=== PATIENT | male | born 1960 | race Caucasian/White ===

== ENCOUNTER 2016-10-19 14:12 | Inpatient (IN) | payer OTHER ==
[~2016-10-19] VITALS: Ht 182.9 cm; Wt 89.3 kg
--- NOTE | ~2016-10-19 | FD ---
ADMIT: 10/19/2016 RM/LOC: 512 [facility] MR#: [id number] [address] [address] [place] [address] Final Diagnosis SEX: M AGE: 56 : 1960 ADMISSION DATE: 10/19/2016 DISCHARGE DATE: 10/20/2016 DISCHARGE DIAGNOSES: 1. Acute episodic encephalopathy of unknown etiology. 2. Known colon cancer with liver metastasis. 3. Generalized anxiety disorder. 4. Chronic pain. 5. Diabetes mellitus. CONSULTS: Oncology, Bryon Gage MD PROCEDURES: None. REASON FOR ADMISSION: The patient admitted from the Emergency Department after presenting again with an episode of encephalopathy. Please see H and P for full details. HOSPITAL COURSE: The patient was admitted as a [facility] patient for further evaluation and treatment of episodes of confusion. He was given IV fluids and his home medicines resumed. Spontaneously in the morning, he had resolved to his baseline. He routinely follows with Dr. Bryon Gage for Oncology regarding his colon cancer. Dr. Gage knows him well and when he evaluated the patient in the morning, he reported that he was at his baseline. We recommended a Neurology consult; however, they are available. Therefore, he was set up with outpatient followup. Given resolution of his symptoms, family felt stable for monitoring at home with outpatient neurologic followup. DISCHARGE MEDICATIONS: 1. Desyrel 50 mg at bedtime. 2. Lyrica 100 mg b.i.d. 3. Melatonin 4.5 mg at bedtime. 4. Pepcid 20 mg daily. 5. Multivitamin daily. 6. Promethazine 25 mg t.i.d. as needed for cough. 7. Xanax 0.25 mg 1/2 to 1 tab p.o. q.6 hours as needed for anxiety. 8. Docusate 100 mg b.i.d. and 200 mg at bedtime. 9. Latuda 20 mg daily. 10.Lamictal 100 mg daily. 11.Vitamin D 5000 units daily. 12.Trazodone 50 mg at bedtime. 13.Morphine sulfate extended release 15 mg b.i.d. and morphine sulfate ADMIT: 10/19/2016 RM/LOC: 512 [facility] MR#: [id number] [id number] [place], [place] [address] [place] [address] Final Diagnosis SEX: M AGE: 56 : 1960 immediate release 15 mg q.6 hours p.r.n. pain. 14.Hydrochlorothiazide 12.5 mg daily. 15.Dexamethasone 8 mg with chemotherapy. 16.Levemir per home dose. 17.Pristiq 100 mg daily. DISCHARGE INSTRUCTIONS: The patient was discharged home in stable condition. He will continue with a diabetic diet and activity as tolerated. He will follow up with his primary care provider in [place] in 1 to 2 weeks. He will also continue with routine followup with his oncologist, Dr. Gage. We also scheduled him a Neurology appointment with the next available with Dr. Olson. Dina Farooq MD/ iwona JOB #: [id number] CC: Bryon Gage MD, Attending Physician Bryon Gage MD, Family Physician
--- NOTE | ~2016-10-19 | WND ---
ADMIT: 10/19/2016 RM/LOC: 512 [facility] MR#: [id number] [address] [address] [place] [address] Wound Care Clinic SEX: M AGE: 56 : 1960 DATE OF VISIT: 10/20/2016 REASON FOR VISIT: Stage III pressure ulcer to his coccyx. TIME OF VISIT: 15 minutes. HISTORY OF PRESENT ILLNESS: Casper is a 56-year-old male, who was admitted to the hospital for increasing confusion. He has a past medical history significant for colon cancer, diabetes, and anxiety who was becoming increasingly confused. He has an ulceration to his coccyx that his states that he received during combining last fall. He has been seen by [facility] and they have him using a compounded cream which has Vaseline, zinc, and an antifungal cream in it. His states she has been putting this on 3 times daily. They also gave him an air cushion for his chair to relieve some of the pressure, however, his states that he has fallen off it several times. PAST MEDICAL HISTORY: 1. Colon cancer. 2. Type 2 diabetes mellitus on insulin. 3. Generalized anxiety. 4. Insomnia. 5. Gastroesophageal reflux disease. 6. Chronic constipation secondary to narcotics. 7. Chronic pain due to malignancy. 8. Hypertension. MEDICATIONS: 1. Melatonin. 2. Zantac. 3. Multivitamin. 4. Promethazine. 5. Xanax. 6. Docusate. 7. Latuda. 8. Lamictal. 9. Vitamin D. 10.Trazodone. 11.Morphine ER. 12.Hydrochlorothiazide. 13.Prochlorperazine. 14.Lyrica. 15.Dexamethasone with chemo. 16.Pristiq. 17.Levemir. ALLERGIES: Penicillins and sulfa. SOCIAL HISTORY: The patient resides in his own home with his . He denies ADMIT: 10/19/2016 RM/LOC: 512 [facility] MR#: [id number] [address] [address] [place] [address] Wound Care Clinic SEX: M AGE: 56 : 1960 tobacco or alcohol use. FAMILY HISTORY: Unremarkable. REVIEW OF SYSTEMS: Casper denies fever or chills. He denies chest pain or shortness of breath. He does report that he has pain to his coccyx area and has to reposition to get rid of the pain. PHYSICAL EXAMINATION: VITAL SIGNS: Temperature is 98.7 degrees Fahrenheit, pulse 73, respirations 16, blood pressure 153/75, and pulse ox 96% on room air. GENERAL: Reveals an alert and oriented 56-year-old male, in no acute distress. EXTREMITIES: Assessment of his coccyx area reveals a full-thickness ulcer on the right side of his gluteal cleft that measures 3 cm in length x 2 cm in width with a dry pink wound bed. There is no induration noted. No periwound erythema is noted. No drainage is noted. ASSESSMENT: Stage III pressure ulcer to the right side of his gluteal fold. PLAN: We will have the staff continue with the Sensi-Care as they have already started applying 4 times daily. In addition, he needs to have an air cushion in his chair while in the hospital. He and his were amenable to plan of care. His reports that while he has been in the hospital she has applied the cream from [facility] in between the doses of Sensi-Care. I did let them know that it was very important to keep the area moist as moist wounds heal faster, but more importantly than that is to offload the area. He was instructed that he should be lying in bed for 1 hour after each meal on his right or left side. The patient is amenable to plan of care. I would like to thank Dr. Dina Farooq for allowing us to participate in Mr. Street's care. Kelley Patterson APRN/ iwona JOB #: [id number] CC: Bryon Gage MD, Attending Physician Bryon Gage MD, Family Physician
[2016-10-21] MEDS ORDERED: MELATONIN3 MG PO (16:22)
[2016-10-21] MEDS ORDERED: PHENERGAN DPS25 MG PO (16:23)
[2016-10-21] MEDS ORDERED: XANAX DPS0.25 MG PO (16:23)
[2016-10-21] MEDS ORDERED: ZANTAC DPS150 MG PO (16:23)
[2016-10-21] MEDS ORDERED: THERAPEUTIC MUL1 TAB PO (16:23)
[2016-10-21] MEDS ORDERED: COLACE100 MG PO (16:24)
[2016-10-21] MEDS ORDERED: LAMICTAL DPS100 MG PO (16:24)
[2016-10-21] MEDS ORDERED: COLACE-DPS100 MG PO (16:24)
[2016-10-21] MEDS ORDERED: LATUDA20 MG PO (16:24)
[2016-10-21] MEDS ORDERED: VITAMIN D35000 UNI1 PO (16:25)
[2016-10-21] MEDS ORDERED: DESYREL-DPS50 MG PO (16:25)
[2016-10-21] MEDS ORDERED: MORPHINE SULFAT15 M1 PO ×2 (16:25)
[2016-10-21] MEDS ORDERED: HCTZ12.5 MG PO (16:26)
[2016-10-21] MEDS ORDERED: COMPAZINE10 MG PO (16:26)
[2016-10-21] MEDS ORDERED: LYRICA50 MG PO (16:26)
[2016-10-21] MEDS ORDERED: LEVEMIR FL100 UNIT/1 SQ (16:27)
[2016-10-21] MEDS ORDERED: DECADRON-DPS4 MG PO (16:27)
[2016-10-21] MEDS ORDERED: PRISTIQ50 MG PO (16:27)
--- NOTE | 2016-10-24 08:51 | HP ---
ADMIT: 10/19/2016 RM/LOC: 512 [facility] MR#: [id number] [address] [address] [place] [address] History and Physical SEX: M AGE: 56 : 1960 DATE OF SERVICE: CHIEF COMPLAINT: Confusion. HISTORY OF PRESENT ILLNESS: Mr. Street is a 56-year-old, male with past medical history significant for colon cancer, diabetes, and anxiety, who has had 2-3 month history of intermittent confusion. He has been evaluated numerous times for these episodes including several hospitalizations at [facility]. He apparently has had neurologic evaluation including MRIs and EEGs. No etiology was determined. He seems to improve with IV fluids and monitoring through the hospitalization. He was most recently admitted within the last week in [facility], was discharged just 2 days ago. At that time, they were told that this was likely due to his cancer and chemotherapy. He was discharged in stable condition but several hours later, he again became more confused. His found him sitting naked on the couch and did not know where he was or what he was doing. Therefore, she brought him to the Emergency Department for further evaluation. A head CT was performed and showed no change, just a chronic cyst. Blood work was also unremarkable. It was thought best to admit for further evaluation and treatment. Other significant past medical history includes history of an "amnesic episode." This was in 2011 and he was seen by Neurology for this episode. This was prior to his cancer diagnosis. At that time, it was felt this was secondary to severe anxiety. He then established with Psychiatry. Since that time, he has been on Latuda, Lamictal, trazodone, Xanax, and Pristiq. He says his normal panic attacks include shortness of breath, heart racing, and hand sweating. These episodes do not seem to be related to his panic attacks. He denies any headaches or migraines. He has had no recent change in his medications. His manages all his medications, so he is very sure he has not missed doses or taken excessive doses. This morning, the patient actually reports he is feeling well. His says he is at his baseline. PAST MEDICAL HISTORY: 1. Colon cancer. 2. Type 2 diabetes mellitus, on insulin. 3. Generalized anxiety. 4. Insomnia. 5. Gastroesophageal reflux disease. 6. Chronic constipation secondary to narcotics. 7. Chronic pain due to malignancy. 8. Hypertension. MEDICATIONS: 1. Melatonin 5 mg at bedtime. 2. Zantac 150 mg daily. 3. Multivitamin daily. 4. Promethazine 25 mg three times daily for cough. ADMIT: 10/19/2016 RM/LOC: 512 [facility] MR#: [id number] [address] [address] [facility] [place] [address] History and Physical SEX: M AGE: 56 : 1960 5. Xanax 0.125 mg daily in the a.m. and 0.25 mg at supper and bedtime. 6. Docusate 100 mg twice daily and an additional 200 mg at bedtime. 7. Latuda 20 mg in the evening. 8. Lamictal 100 mg at bedtime. 9. Vitamin D daily. 10.Trazodone 50 mg at bedtime. 11.Morphine ER 15 mg twice daily and morphine 50 mg IR every 6 hours as needed. 12.Hydrochlorothiazide 12.5 mg daily. 13.Prochlorperazine 10 mg t.i.d. 14.Lyrica 100 mg twice daily. 15.Dexamethasone with chemo. 16.Pristiq 100 mg daily. 17.Levemir, unknown dose. ALLERGIES: TO PENICILLIN AND SULFA. SOCIAL HISTORY: The patient lives independently at home with his . No known alcohol abuse. Nonsmoker and denies illicit drug use. FAMILY HISTORY: Unremarkable. REVIEW OF SYSTEMS: As per HPI, reviewed and negative. PHYSICAL EXAMINATION: VITAL SIGNS: Temperature 97.8, pulse 73, respiratory rate 18, blood pressure 155/86, oxygen saturation 96% on room air. GENERAL: The patient is awake, alert, no acute distress. HEENT: Within normal limits, although he does have a small abrasion that has a bandage over it to the right temporal scalp. HEART: Regular rate and rhythm. No murmurs. LUNGS: Clear to auscultation but diminished throughout. No crackles or wheezes. No accessory muscle use. ABDOMEN: Soft, nontender, and nondistended. Normal bowel sounds. EXTREMITIES: Warm and dry. No edema. NEUROLOGIC: Cranial nerves II through XII grossly intact. No focal neurologic deficit. PSYCH: The patient' mood and affect are appropriate. SKIN: The patient has a large pressure ulcer to the sacrum. LABORATORY DATA: See electronic record for full details. IMAGING: Head CT and chest x-ray were reviewed. ASSESSMENT AND PLAN: 1. Acute episodic encephalopathy. We will consult Neurology to get a second opinion on possible etiologies. This is currently resolved at this time however. ADMIT: 10/19/2016 RM/LOC: 512 [facility] MR#: [id number] [address] [place] [address] [place] [address] History and Physical SEX: M AGE: 56 : 1960 2. Colon cancer with liver metastasis. His oncologist has been consulted and does not feel this mental status changes related to his malignancy or his chemotherapy. 3. Generalized anxiety. Appears well controlled but would consider this as a contributing factor as well. He should continue following with his psychiatrist. 4. Chronic pain. This is well controlled. 5. Diabetes mellitus. We will clarify his home insulin regimen. This is uncontrolled with an A1c of 8.0. DISPOSITION: We will plan to discharge patient home following Neuro evaluation. It will likely be this afternoon versus tomorrow. Dina Farooq MD/ iwona JOB #: [id number] CC: Bryon Gage, Attending Physician Bryon Gage, Family Physician
--- NOTE | 2016-11-13 01:08 | ER ---
ADMIT: 10/19/2016 RM/LOC: 512 [facility] MR#: [id number] [address] [address] [place] [address] Emergency Room Report SEX: M AGE: 56 : 1960 DATE: 10/19/2016 This patient was admitted. CLINICAL IMPRESSION: 1. Colon cancer stage IV with mets to the liver. 2. Acute confusion. 3. Hyperglycemia with diabetes. The patient was admitted mostly for the confusion to have further investigation. DISPOSITION: Stable at admit. ASIA Chapman / Tyler Crowell MD / modl JOB #: [id number] CC: Bryon Gage MD, Attending Physician Bryon Gage MD, Family Physician
[2016-11-17] MEDS ORDERED: GLUCOPHAGE500 MG PO (06:20)
[2016-11-17] MEDS ORDERED: JANUVIA50 MG PO (06:21)
[2016-11-17] MEDS ORDERED: KLOR-CON M2020 ME1 PO (06:21)
[2016-11-17] MEDS ORDERED: MAG-OX400 MG PO (06:23)
[2016-11-17] MEDS ORDERED: PEPCID DPS20 MG PO (06:24)
[2016-11-17] MEDS ORDERED: XANAX DPS0.25 MG PO (06:26)
[2016-11-17] MEDS ORDERED: MSIR DPS15 MG PO (06:27)
[2016-11-17] MEDS ORDERED: MAALOX DPS30 ML PO (06:27)
[2016-11-17] MEDS ORDERED: SURFAK DPS240 MG PO (06:28)
[2016-11-17] MEDS ORDERED: TYLENOL DPS325 MG PO (06:29)
[2016-11-17] MEDS ORDERED: DEXAMETHASONE4 MG PO (06:31)
== END 2016-10-20 16:48 | disposition home or self-care (01) | DRG 70 ==
LOC: ER 14:12 → 5MS 18:26
PROVIDERS: ADMIT Family Medicine
DX: G93.49 Other encephalopathy (principal); L89.313 Pressure ulcer of right buttock, stage 3; C78.7 Secondary malignant neoplasm of liver and intrahepatic bile duct; C18.9 Malignant neoplasm of colon, unspecified; E11.65 Type 2 diabetes mellitus with hyperglycemia; F41.0 Panic disorder [episodic paroxysmal anxiety]; K59.03 Drug induced constipation; I10 Essential (primary) hypertension; F41.1 Generalized anxiety disorder; G47.00 Insomnia, unspecified; T40.605A Adverse effect of unspecified narcotics, initial encounter; G89.3 Neoplasm related pain (acute) (chronic); Z79.4 Long term (current) use of insulin

== ENCOUNTER 2016-11-09 15:20 | Observation (INO) | payer OTHER, MEDICARE ==
[~2016-11-09] VITALS: Ht 182.9 cm; Wt 83.0 kg
--- NOTE | ~2016-11-09 | WND ---
ADMIT: 11/09/2016 RM/LOC: 521 [facility] MR#: [id number] [address] [address] [place] [address] Wound Care Clinic SEX: M AGE: 56 : 1960 DATE OF VISIT: 11/10/2016 TIME IN: 0800 hours. TIME OUT: 0815 hours. REASON FOR VISIT: Evaluation and treatment of sacral ulceration. Request for wound care from Dr. Benavidez. HISTORY OF PRESENT ILLNESS: This is a 56-year-old male, who was seen in September of 2016 by Wound Care and diagnosed with stage III pressure ulceration to his coccyx. He has previously used Sensi-Care to the area. Also, has reports of another lotion that he has received from [facility], but did not know the name of it. The patient was admitted yesterday by Dr. Benavidez. He was diagnosed in 2016 with rectosigmoid colon mass and metastatic liver lesions. He had FOLFOX chemotherapy with the intention of surgical resection after four cycles, the last one was on October 03, 2016. However, he has not been able to have the surgery. He had been recently discharged from [facility] after urinary tract infection and in addition to his colon cancer, he had a psychiatric condition not clearly described or identified. He was seen in the emergency room at [facility] and transferred to [facility] for further evaluation and care. It was noted that he had a pressure injury and Dr. Benavidez requested the wound Care to follow up. While admitted, he had lower pelvic pain, not changed from his baseline. A CT scan done on November 04, 2016, compared to an abdominal pelvis reading in August showed no change. He had been experiencing dizziness with loss of balance and falls prior to admission. PAST MEDICAL HISTORY: 1. Colon cancer. 2. Diabetes mellitus type 2. 3. Anxiety disorder. 4. Gastroesophageal reflux disease. 5. Constipation. 6. Chronic pain. 7. Mental condition with amnestic episodes. 8. Balance problems. 9. Neurologic symptoms prior to cancer diagnosis. ALLERGIES: Penicillin and sulfa. CURRENT MEDICATIONS: Per the MAR. Please see the MAR for further details. 1. Colace. 2. Desyrel. 3. Glucophage. 4. Januvia. 5. Klor-Con. ADMIT: 11/09/2016 RM/LOC: 521 [facility] MR#: [id number] [address] [address] [place] [address] Wound Care Clinic SEX: M AGE: 56 : 1960 6. Lamictal. 7. Lyrica. 8. Magnesium oxide. 9. Melatonin. 10.MS Contin. 11.Pepcid. 12.Pristiq. 13.Multivitamins. 14.Vitamin D. 15.Xanax. 16.D5NS. P.R.N. medications: 1. Compazine. 2. Maalox. 3. MSIR. 4. Phenergan. 5. Surfak. 6. Tylenol. 7. Tylenol suppositories. FAMILY HISTORY: History from previous records indicate heart disease, cancer, hypertension, and diabetes. SOCIAL HISTORY: He lives in [place] with his . He has a high school education. He never smoked. Occasional beer. No illicit drug use. He is currently disabled. 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 REVIEW OF SYSTEMS: He is examined in his hospital room where he is awake, alert, and oriented x3. He states the discomfort in his bottom has been on and off since May. He denies any recent fever or chills. No nausea or vomiting. His appetite has decreased. He has lost 50 pounds since his cancer diagnosis. He denies any abdominal discomfort. He rates the pain in his bottom as 7-8. He states he does use a chair air cushion at home. He usually sleeps in his recliner on the cushion. PHYSICAL EXAMINATION: Focused exam: Body wide skin exam was done. He has a very thin body habitus. On the coccyx area, a total area that measures 4.5 x 5.5 cm that is pink in the center, there is a necrotic center that measures 0.5 cm x 3 cm. Very tender with palpation. The rest of the skin exam is negative. ASSESSMENT: Unstageable pressure ulceration, coccyx, previous records indicate this was stage III. TREATMENT PLAN: The Sensi-Care was cleansed from the area. After drying, a thick hydrocolloid was placed over the coccyx area. Orders were written to change this twice weekly and p.r.n. if it becomes loose. Also, recommended that if the hydrocolloid does not stay in place, he can go back to the Sensi- ADMIT: 11/09/2016 RM/LOC: 521 [facility] MR#: [id number] [address] [place] [address] [place] [address] Wound Care Clinic SEX: M AGE: 56 : 1960 Care 4 times daily. Recommend he remain on the low air loss mattress. Chair cushion if he is up. Sleep off the coccyx entirely with placing a pillow under his hip, so there is at least a 30-degree tilt. Education was done with the patient about the etiology of these pressure injuries. Explained to him that because of his thin body habitus, he is very prone to developing more injury, and it is the total length of time and also the amount of pressure to the area that will worsen the pressure injury. He voiced understanding of physical findings and treatment plan. Thank you for this referral, and Wound will follow while he is inpatient. Dina Carcamo APRN/ iwona JOB #: [id number] CC: Tori Benavidez, Attending Physician UNKNOWN, Family Physician
[~2016-11-09 15:20] MED LIST: COLACE-DPS100 MG PO; COLACE100 MG PO; COMPAZINE10 MG PO; DECADRON-DPS4 MG PO; DESYREL-DPS50 MG PO; HCTZ12.5 MG PO; LAMICTAL DPS100 MG PO; LATUDA20 MG PO; LEVEMIR FL100 UNIT/1 SQ; LYRICA50 MG PO; MELATONIN3 MG PO; MORPHINE SULFAT15 M1 PO; PHENERGAN DPS25 MG PO; PRISTIQ50 MG PO; THERAPEUTIC MUL1 TAB PO; VITAMIN D35000 UNI1 PO; XANAX DPS0.25 MG PO; ZANTAC DPS150 MG PO
[2016-11-17] MEDS ORDERED: GLUCOPHAGE500 MG PO (06:20)
[2016-11-17] MEDS ORDERED: KLOR-CON M2020 ME1 PO (06:21)
[2016-11-17] MEDS ORDERED: JANUVIA50 MG PO (06:21)
[2016-11-17] MEDS ORDERED: MAG-OX400 MG PO (06:23)
[2016-11-17] MEDS ORDERED: PEPCID DPS20 MG PO (06:24)
[2016-11-17] MEDS ORDERED: XANAX DPS0.25 MG PO (06:26)
[2016-11-17] MEDS ORDERED: MAALOX DPS30 ML PO (06:27)
[2016-11-17] MEDS ORDERED: MSIR DPS15 MG PO (06:27)
[2016-11-17] MEDS ORDERED: SURFAK DPS240 MG PO (06:28)
[2016-11-17] MEDS ORDERED: TYLENOL DPS325 MG PO (06:29)
[2016-11-17] MEDS ORDERED: DEXAMETHASONE4 MG PO (06:31)
--- NOTE | 2016-11-21 10:58 | CO ---
ADMIT: 11/09/2016 RM/LOC: 521 [facility] MR#: [id number] [address] [address] [place] [address] Consultation SEX: M AGE: 56 : 1960 DATE OF CONSULTATION: 11/14/2016 ATTENDING PHYSICIAN: Tori Benavidez CONSULTING PHYSICIAN: Robby Olson MD REASON FOR CONSULTATION: Encephalopathy. HISTORY OF PRESENT ILLNESS: The patient is a 56-year-old gentleman with history of colon cancer, metastatic, which was diagnosed back in 2015. The patient also has a history of intermittent confusion/memory loss/encephalopathy. This has been ongoing since about 2011. He had been diagnosed with transient global amnesia in the past as well. He had some panic attacks with difficulty speaking back in 2012 which improved with Ativan, in June 2015 developed some problems with his memory, forgetting where he would place things or even performing a task that he previously had no problem doing. He was reportedly evaluated by Dr. Lynch in 2016, who felt the patient had a psychogenic etiology for his spells as they always occurred under stress. As per his daughter, the things became much worse in the last 3 or 4 months where his confusion was waxing and waning but with some residual in between the spells. Unfortunately, the was not present during this initial encounter to obtain more history about this. I received packet of information from the [facility] and his previous admissions which in total is around 560 pages. I reviewed majority of the paperwork. The labs that were available were just simple cultures, CBC, CMP, procalcitonin, prolactin, lactic acid. I did not see any specialized labs. He also had several EEGs which were reportedly normal or showing slowing. The EEG had showed some slowing, was obtained at that time when he was likely overdosed with opiates. Unfortunately, I do not have outpatient notes from Dr. Lynch or Dr. Umaña available at this time. PAST MEDICAL HISTORY: Positive for colon cancer, metastatic; type 2 diabetes; anxiety; some psychiatric problems; diagnosed with bipolar, currently on Lamictal; gastroesophageal reflux; constipation; chronic pain; lumbar spondylosis; chronic back pain. FAMILY HISTORY: Noncontributory to current presentation. SOCIAL HISTORY: No history of alcohol. No smoking. MEDICATIONS: On outpatient basis included: 1. Melatonin. 2. Zantac. 3. Multivitamin. 4. Promethazine. 5. Xanax. 6. Docusate. ADMIT: 11/09/2016 RM/LOC: 521 [facility] MR#: [id number] [address] [address] [place] [id number] Consultation SEX: M AGE: 56 : 1960 7. Latuda. 8. Lamictal. 9. Vitamin D. 10.Trazodone. 11.Morphine. 12.Hydrochlorothiazide. REVIEW OF SYSTEMS: Unable to obtain from the patient secondary to his mental state. ALLERGIES: I BELIEVE PENICILLIN AND SULFA. PHYSICAL EXAMINATION: VITAL SIGNS: 97.5, heart rate 88, respirations 16, blood pressure 149/88, saturation 97% on room air. GENERAL: The patient appears to be in no acute discomfort, examined while supine in bed. HEAD: Normocephalic. NECK: Supple. CHEST: Normal respiratory rises. CARDIOVASCULAR: Regular rate and rhythm. ABDOMEN: Not examined. EXTREMITIES: No significant edema noted. NEUROLOGICAL EXAMINATION: The patient is alert and awake; however, disoriented to place. He thinks that he is in [facility], then he starts to talk nonsense without any clear association. Speech appears to be intact, language as well. However, the latter is hard to test formally. He is able to follow only 1 step command. He recognizes daughter but missed her age by 9 years. Cranial nerves II through XII unremarkable. Visual piper were intact. Pupils equal, reactive. Extraocular muscles intact. Facial sensation normal. Face is symmetric. Hearing to voice intact. Did not visualize uvula or palatal arches. Shoulder shrug was symmetric. Tongue midline, freely moveable. Motor examination reveals fairly preserved strength throughout. No focality. Normal tone. Sensory examination reveals non- lateralized link to touch. Reflexes brisk, symmetric in upper extremities and knees, reduced ankle reflexes. Toes neutral. Coordination; finger to nose unremarkable. Gait deferred. LABORATORY AND X-RAY DATA: Reviewed in electronic medical record. A CT I reviewed in person from September 2016, normal study. I do not have any other studies available. ADMIT: 11/09/2016 RM/LOC: 521 [facility] MR#: [id number] [address] [address] [place] [id number] Consultation SEX: M AGE: 56 : 1960 ASSESSMENT: Encephalopathy with broad differential, paraneoplastic encephalopathy can present as multitude of psychiatric symptoms. PLAN: I would like to repeat the brain MRI, obtain EEG for baseline. If the EEG would be completely normal, then suggestion would be toward psychiatric condition. Still cannot rule out paraneoplastic syndrome/limbic encephalitis. Paraneoplastic panel was already sent and is currently pending. I will need to obtain outpatient notes from Dr. Lynch for further review to see if there was more any specialized testing done. Thank you very much for this interesting consultation. We will continue to follow. Robby Olson MD/ iwona JOB #: [id number] CC: Tori Benavidez, Attending Physician UNKNOWN, Family Physician
--- NOTE | 2016-11-27 21:15 | HP ---
ADMIT: 11/09/2016 RM/LOC: 521 [facility] MR#: [id number] [address] [place] [address] History and Physical SEX: M AGE: 56 : 1960 DATE OF SERVICE: HISTORY: This is a pleasant, 56-year-old, gentleman with the metastatic colon cancer. He has been diagnosed back in mid 2015, is being evaluated for rectosigmoid colon mass with the metastatic liver lesions. He has had FOLFOX chemotherapy with the intention of surgical resection after 4 cycles so far, the last one being on October 03, 2016, he has not been able to get ready for surgery. He has recently been discharged from [facility] after a urinary tract infection and then in addition to his colon cancer, his mental condition or psychiatric condition not clearly described or identified. The has taken him to the [facility] today and then emergency room has offered them admission and they refused to be admitted to [facility] and then I was called and the patient wanted transferred to [place], so we are admitting him for further workup, evaluation, and possible long-term placement as his care become difficult at home. He complains of some lower pelvic pain which has not changed from his baseline; then there was a CAT scan done on November 04, 5 days ago; both the CT brain and the abdominal pelvis revealing no change from the prior one in August. He is complaining of feeling dizzy and then loss of balance and falls and the current laboratory done at the [facility]; CBC, CMP, and urinalysis does not reveal anything other than his known diabetic changes in the blood sugar and the urine glucose positivity. He is admitted and we will further evaluate and make further plans. He does have a sacral pressure ulcer, this is being addressed by wound care. PAST MEDICAL HISTORY SURGERY: Positive for, as mentioned, colon cancer, type 2 diabetes, anxiety disorder, gastroesophageal reflux, constipation, chronic pain, and this mental condition with amnestic episodes, balance problems. His neurologic symptoms were prior to his cancer diagnosis. He has been on Latuda, Lamictal, trazodone, Xanax, and Pristiq. FAMILY HISTORY: Negative for cancers. SOCIAL HISTORY: Lives independently at home. No history of alcohol or smoking. CURRENT MEDICATIONS: 1. Melatonin. 2. Zantac. 3. Multivitamin. 4. Promethazine. 5. Xanax. 6. Docusate. 7. Latuda is on hold. 8. Lamictal. 9. Vitamin D. 10.Trazodone. 11.Morphine. 12.Hydrochlorothiazide. ADMIT: 11/09/2016 RM/LOC: 521 [facility] MR#: [id number] [address] [facility] [place] [address] History and Physical SEX: M AGE: 56 : 1960 REVIEW OF SYSTEMS: Complains of some pelvic pain which is not different from his baseline, has falls at home and balance problems. No nausea, vomiting, diarrhea. No night sweats, fevers, chills. No chest pain. No hearing or vision problems. The rest of the systems are negative. PHYSICAL EXAMINATION: VITAL SIGNS: Temperature 98, blood pressure 110/70, pulse rate 88, respirations 20. HEAD, EARS, EYES, NOSE, THROAT EXAM: Normocephalic and atraumatic. Extraocular muscles intact. NECK: Supple. No JVD. No lymph nodes palpable. CHEST: Sounds clear to auscultation and percussion. HEART: Normal S1, S2. No S3, S4. No murmurs. ABDOMEN: Soft and nontender. No organomegaly. EXTREMITIES: No cyanosis, clubbing, or edema. There is a stage II looks like stage III pressure ulcer to the coccyx. ASSESSMENT AND PLAN: Mr. Street is a pleasant, 56-year-old, gentleman with the metastatic colon cancer and anxiety disorder and confusion, amnesia, neurologic syndrome not clearly diagnosed. At the family request, the patient was transferred from [facility] to [facility]. I will admit the patient and ask Wound consult and monitor his symptoms as well as his blood counts. Dr. Gage will see him tomorrow and then we will make the arrangements depending on if the patient is unable to be cared at home, Social Service may be contacted for long-term placement and chemotherapy and surgery for the colon cancer will be addressed by Dr. Gage. ADMITTING DIAGNOSES: Loss of balance, inability to be cared for at home, fatigue, dizziness, metastatic colon cancer, pressure ulcers. This encounter took 60 minutes, 35 minutes was [id number]. Tori Benavidez MD/ iwona JOB #: [id number] CC: Tori Benavidez, Attending Physician UNKNOWN, Family Physician
--- NOTE | 2016-12-17 19:48 | DS ---
ADMIT: 11/09/2016 RM/LOC: 521 [facility] MR#: [id number] [address] [place] [address] Discharge Summary SEX: M AGE: 56 : 1960 ADMISSION DATE: 11/09/2016 DISCHARGE DATE: 11/15/2016 HISTORY: This is a pleasant, 56-year-old, gentleman with the metastatic colon cancer. He was admitted for mental status changes, transferred from [place], and admitted on November 09 for further workup and evaluation. HOSPITAL COURSE: The patient was given IV fluids, and consulted with Neurology for advanced encephalopathy, and workup for perineoplastic syndrome and other etiologies was performed. Neurology consult by Dr. Olson. Repeated the brain MRI and EEG for baseline. Then he recommended psychiatric condition evaluation too. The perineoplastic panel was sent and then consulted to be seen as an outpatient. Patient's overall condition improved and he was discharged on the 15 of November after eight days of hospitalization to be followed as an outpatient. The patient will be followed by Dr. Gage as an outpatient. DISCHARGE DIAGNOSES: 1. Metastatic colon cancer. 2. Encephalopathy versus perineoplastic syndrome. This discharge summary took 40 minutes; 25 minutes was [id number]. Tori Benavidez MD/ njv JOB #: [id number] CC: Tori Benavidez MD, Attending Physician UNKNOWN, Family Physician
== END 2016-11-15 12:28 ==
LOC: 5MS 15:20
PROVIDERS: ADMIT Internal Medicine Hematology & Oncology
DX: C78.7 Secondary malignant neoplasm of liver and intrahepatic bile duct (principal); C18.9 Malignant neoplasm of colon, unspecified; L89.150 Pressure ulcer of sacral region, unstageable; G93.40 Encephalopathy, unspecified; E11.9 Type 2 diabetes mellitus without complications; F41.9 Anxiety disorder, unspecified; K21.9 Gastro-esophageal reflux disease without esophagitis; G89.29 Other chronic pain; M47.816 Spondylosis without myelopathy or radiculopathy, lumbar region; Z88.0 Allergy status to penicillin; Z88.2 Allergy status to sulfonamides; Z79.891 Long term (current) use of opiate analgesic; Z79.899 Other long term (current) drug therapy